=== PATIENT | female | born 1945 | race Caucasian/White ===

== ENCOUNTER 2025-04-10 09:44 | Emergency (ER) | payer MEDICARE ==
[2025-04-10 10:08] VITALS: RESP 18; TEMP 97.9
--- NOTE | 2025-04-10 10:37 | XRAY ---
Indication: Pain following fall. Comparison: None 5 view lumbar spine demonstrates 5 lumbar segments with hypoplastic T12 ribs. Chronic findings including osteopenia, mild/moderate multilevel thoracolumbar degenerative spondylosis greatest L4-L5, and moderate scattered vascular calcifications. No acute bony, articular, or soft tissue abnormalities.
--- NOTE | 2025-04-10 10:37 | XRAY ---
Indication: Pain following fall. Comparison: None 4 view right knee demonstrates osteopenia, minimal medial joint space narrowing, small spurring patella/tibial tuberosity, tiny posterior fabella, diffuse scattered vascular calcifications, and small nonspecific effusion. No acute fracture.
[2025-04-10 11:13] VITALS: BP 156/89; PULSE 74
[2025-04-10 11:18] VITALS: O2SAT 99
--- NOTE | 2025-04-10 11:18 | ERPHSYRPT ---
- History of Present Illness Patient Subjective Stated Complaint: "I was walking with my walking yoandy when i felt pain and weakness in my right leg. It buckled and I fell." Triage Nursing Assessment: patient is wheeled to the bed and stands with assistance. She states that she was walking when she experienced pain along her right thigh and up into her buttock. Her knee buckled and she fell. She states she does not have any other pain related to the fall. There are no skin abrasions noted and no tenderness to the head. She rates her pain at a 2 currently. Lower extremity push pulls are strong and equal bilaterally. she denies any other symptoms. Physician History: Presents with right posterior lateral leg pain, she apparently was going out for a walk with her friend and developed pain about her butt cheek and right leg pain became so severe her right knee gave out and she fell down, at the time examination complains of having right knee pain and continued pain about the posterior aspect of her right leg, she denies any back pain, She denies any numbness or tingling to her foot, Her pain extends to her knee only no pain distally Method of Injury: unknown Occurred: just prior to arrival Quality: constant Severity of Pain-Max: severe Severity of Pain-Current: moderate Lower Extremities Pain: knee: right, thigh: right (Posterior aspect) Modifying Factors: Improves With: nothing Associated Symptoms: none Allergies/Adverse Reactions: No Known Drug Allergies Allergy (Unverified 04/10/25 10:19) Hx Tetanus, Diphtheria Vaccination/Date Given: Yes Hx Influenza Vaccination/Date Given: No Hx Pneumococcal Vaccination/Date Given: No Travel Risk - International Travel Have you traveled outside of the country in past 3 weeks: No - Emerging Infectious Disease Are you exhibiting symptoms associated with any current EIDs: No - Past Medical History Pertinent Past Medical History: Yes Neurological History: No Pertinent History ENT History: No Pertinent History Cardiac History: Coronary Artery Disease, High Cholesterol, Hypertension Respiratory History: No Pertinent History Endocrine Medical History: Diabetes Type II Musculoskeletal History: No Pertinent History GI Medical History: No Pertinent History History: No Pertinent History Psycho-Social History: No Pertinent History Female Reproductive Disorders: No Pertinent History - Past Surgical History Past Surgical History: Yes Neuro Surgical History: No Pertinent History Cardiac: CABG Respiratory: No Pertinent History Gastrointestinal: Cholecystectomy Genitourinary: No Pertinent History Musculoskeletal: No Pertinent History Female Surgical History: Hysterectomy - Social History Smoking Status: Never smoker Exposure to second hand smoke: No Drug Use: none - Social Determinants of Health Will the patient participate in the screening: Yes Do you worry about a steady place to live?: No Do you have any problems with any of the following?: No known problems In the past 12 months,have you had to go without utilities?: No Transportation Issues: No Has anyone in your support network made you feel unsafe?: No Have you or anyone in your house had to go w/o enough food: No - Nursing Vital Signs Nursing Vital Signs: Initial Vital Signs Temperature 97.9 F 04/10/25 09:52 Pulse Rate 84 04/10/25 09:52 Respiratory Rate 18 04/10/25 09:52 Blood Pressure 171/90 04/10/25 09:52 O2 Sat by Pulse Oximetry 99 04/10/25 09:52 Pain Scale Pain Intensity 2 - Physical Exam General Appearance: no apparent distress, alert Eyes, Ears, Nose, Throat Exam: normal ENT inspection Neck Exam: normal inspection, non-tender, supple Legs Exam: right leg: soft tissue tenderness (Right gluteus extending to the right Posterior thigh) Knees Exam: right knee: no evidence of injury, bone tenderness, soft tissue tenderness, bilateral knee: normal inspection Neuro/Tendon Exam: normal motor functions, responds to pain, no evidence tendon injury Mental Status Exam: alert, oriented x 3, cooperative Skin Exam: normal color, warm, dry SpO2 Interpretation: normal SpO2: 99 Ordered Tests: Active Orders 24 hr Category Date Time Status KNEE (MIN 4 VIEW) Stat Exams 04/10/25 10:05 Completed LUMBAR COMPLETE (MIN 4 VIEWS) Stat Exams 04/10/25 10:05 Completed - Progress Progress Note: 04/10/25 11:16 Discussed x-ray results, recommend outpatient physical therapy, pain medication and follow-up primary care doctor - Departure Departure Disposition: Home Clinical Impression: Sciatica Qualifiers: Laterality: right Qualified Code(s): M54.31 - Sciatica, right side Condition: Stable Critical Care Time: No Referrals: KOBE SHETH MD [Primary Care Provider, [facility]] - Follow up/PCP as directed Instructions: Sciatica - ED discharge instructions Additional Instructions: Apply ice to low back 10 to 15 minutes 3-4 times a day, medication as prescribed, follow-up for outpatient physical therapy, follow-up to primary care doctor Prescriptions: Hydrocodone/APAP 5/325 [[place] 5/325 mg] 1 each PO Q6H PRN PRN #10 tablet MDD 6 PRN Reason: Pain Ibuprofen 600 mg PO TID PRN #15 tablet PRN Reason: Pain Lidocaine HCl 5% Patch [Lidoderm Patch 5%] 1 patch TOP DAILY #10 patch Outpatient Orders: Physical Therapy Eval & Treat Facility: [facility], Location: PHYSICAL THERAPY
== END 2025-04-10 11:42 | disposition home or self-care (01) ==
LOC: ED 09:44
DX: M54.31 Sciatica, right side (principal); M79.604 Pain in right leg; M25.561 Pain in right knee; I10 Essential (primary) hypertension; E11.9 Type 2 diabetes mellitus without complications; Z79.891 Long term (current) use of opiate analgesic; Z79.899 Other long term (current) drug therapy